=== PATIENT | female | born 1980 | race Hispanic/Latino ===

== ENCOUNTER 2018-02-11 15:17 | Emergency (ER) | payer OTHER, SELFPAY ==
[2018-02-11 15:37] VITALS: BP 110/74; PULSE 89; RESP 16; TEMP 36.8; O2SAT 99; BMI 24.8
[2018-02-11 16:23] LABS: Bacteria Urine Moderate (10-30); RBC Urine 10-30/HPF (0-5/HPF); WBC Urine 10-30/HPF (0-5/HPF)
[2018-02-11 16:24] LABS: Culture Indicated Urine Specimen Cultured
[2018-02-11 18:30] VITALS: BP 105/67; PULSE 81; RESP 16; O2SAT 99
[2018-02-11] MEDS: HYDROCODONE/ACET 5/325 TABLET 1 TAB PO (19:00)
--- NOTE | 2018-02-11 19:10 | ED.PREGNANCY ---
HPI - <CADY Evans - Last Filed: 02/11/18 22:19> General Chief complaint: Urogenital-Female Stated complaint: thinks a UTI Time Seen by Provider: 02/11/18 18:45 Source: patient Mode of arrival: ambulatory Limitations: no limitations History of Present Illness HPI Narrative: 38-year-old healthy female that is nonsmoker here for complaint of having dysuria and increased urinary frequency over the past 10 days. She was seen for this at her primary care office and she states that she did not receive Any antibiotics. She states symptoms have gotten worse over the past few days and then today she started having pain into her right flank area. She denies any trauma to the area. She noted fevers chills no nausea or vomiting. Positive p.o. intake. She denies any hematuria. Related Data Previous Rx's Medication Instructions Recorded levofloxacin [Levaquin] 750 mg PO DAILY #6 tab 02/11/18 Allergies Allergy/AdvReac Type Severity Reaction Status Date / Time No Known Drug Allergies Allergy Verified 02/11/18 15:43 Review of Systems <CADY Evans - Last Filed: 02/11/18 22:19> Constitutional Denies chills, Denies fever(s), Denies lethargy and Denies weakness Eyes Denies change in vision, Denies eye discharge, Denies irritation and Denies loss of vision ENT Ears, Nose, Mouth, and Throat: Denies change in voice, Denies neck pain and Denies sore throat Cardiovascular Denies chest pain, Denies irregular heart rhythm, Denies lightheadedness, Denies palpitations, Denies dyspnea, Denies dyspnea on exertion and Denies orthopnea Respiratory Denies cough, Denies dyspnea, Denies dyspnea on exertion and Denies wheezing Gastrointestinal Gastrointestinal: Denies abdominal pain, Denies change in bowel habits, Denies diarrhea, Denies nausea and Denies vomiting Genitourinary Denies hematuria, Reports dysuria, Reports flank pain, Denies urinary incontinence and Reports urinary urgency Musculoskeletal Denies neck pain Integumentary/Breasts Denies pruritus, Denies erythema, Denies rash and Denies wounds Neurologic Denies confusion, Denies loss of vision and Denies weakness Psychiatric Denies anxiety, Denies confusion, Denies depression, Denies homicidal ideation and Denies suicidal ideation Endocrine Denies palpitations Hematologic/Lymphatic Denies easy bruising Allergic/Immunologic Denies wheezing PMFSH - <CADY Evans - Last Filed: 02/11/18 22:19> Past Medical History Medical history: Reports no medical history Exam <CADY Evans - Last Filed: 02/11/18 22:19> Initial Vital Signs Initial Vital Signs: Vital Signs Temperature 98.2 F 02/11/18 15:37 Pulse Rate 89 02/11/18 15:37 Respiratory Rate 16 02/11/18 15:37 Blood Pressure 110/74 02/11/18 15:37 Pulse Oximetry 99 02/11/18 15:37 Const General: cooperative and well developed Nutritional Appearance: well nourished Orientation: alert, awake, oriented x3 and not confused HENCO Mouth: oral mucosae normal and moist mucous membranes Eyes Conjunctivae: conjunctivae normal Sclera: sclerae normal Pupils: PERRL EOM: EOM intact bilaterally Resp Effort & Inspection: normal respiratory effort, able to speak in complete sentences, no respiratory distress and no use of accessory muscles Auscultation: clear to auscultation bilaterally, no rales, no rhonchi and no wheezes Cardio Rate: regular rate Rhythm: regular rhythm Heart Sounds: no click, no gallops, no murmurs and no rubs Pulses: normal peripheral pulses GI Inspection: non-distended Palpation: soft, no hepatosplenomegaly, No guarding, No pulsatile mass and No tender Auscultation: normal bowel sounds General: CVA tenderness Skin General: no rashes or lesions noted, No jaundice and No petechiae Neuro General: alert, oriented x3, gait normal and no focal motor deficits Speech: speech normal <Enoch Garcia DO - Last Filed: 02/11/18 23:19> Initial Vital Signs Initial Vital Signs: Vital Signs Temperature 98.2 F 02/11/18 15:37 Pulse Rate 89 02/11/18 15:37 Respiratory Rate 16 02/11/18 15:37 Blood Pressure 110/74 02/11/18 15:37 Pulse Oximetry 99 02/11/18 15:37 Course <CADY Evans - Last Filed: 02/11/18 22:19> Orders Ordered: Discontinued Medications Hydrocodone Bitart/Acetaminophen ([place] 5/325) 1 tab PO NOW ONE Stop: 02/11/18 19:13 Last Admin: 02/11/18 19:00 Dose: 1 tab Levofloxacin (Levaquin) 750 mg PO NOW ONE Stop: 02/11/18 19:47 Last Admin: 02/11/18 19:52 Dose: 750 mg Vital Signs - 8 hr 02/11/18 15:37 02/11/18 18:30 02/11/18 19:30 Temperature 98.2 F Pulse Rate 89 81 75 Respiratory Rate 16 16 14 Blood Pressure 110/74 Blood Pressure [Right Arm] 105/67 104/63 Pulse Oximetry 99 99 100 <Enoch Garcia DO - Last Filed: 02/11/18 23:19> Orders Ordered: Discontinued Medications Hydrocodone Bitart/Acetaminophen ([place] 5/325) 1 tab PO NOW ONE Stop: 02/11/18 19:13 Last Admin: 02/11/18 19:00 Dose: 1 tab Levofloxacin (Levaquin) 750 mg PO NOW ONE Stop: 02/11/18 19:47 Last Admin: 02/11/18 19:52 Dose: 750 mg Vital Signs - 8 hr 02/11/18 15:37 02/11/18 18:30 02/11/18 19:30 Temperature 98.2 F Pulse Rate 89 81 75 Respiratory Rate 16 16 14 Blood Pressure 110/74 Blood Pressure [Right Arm] 105/67 104/63 Pulse Oximetry 99 99 100 MDM - OB/Uterine Contractions <CADY Evans - Last Filed: 02/11/18 22:19> Lab Data Lab Results 02/11/18 Range/Units Unknown Urine RBC 10-30/hpf H (0-5/HPF) Urine WBC 10-30/hpf H (0-5/HPF) Urine Bacteria Moderate (10-30) H (None) Ur Culture Indicated? Specimen cultured Micro UA Comment Not Reportable Point of Care Testing Test Results Negative Urine Dip Bedside Urine Glucose Negative Bedside Urine Bilirubin - Negative Bedside Urine Ketone - Negative Urine Specific [place] 1.025 Bedside Urine pH 5.5 Bedside Urine Protein + 30 Bedside Urine Urobilinogen - Negative Bedside Urine Nitrite - Negative Bedside Urine Leukocytes +++ 500 Esterase MDM Narrative Medical decision making narrative: Urinalysis indicates urinary tract infection. With right flank pain will treat for starting pyelo nephritis with Levaquin. [id number] Tylenol as needed for any discomfort. urine culture is pending.Plenty of fluids. Follow up with primary care provider the next few days for re-evaluation. For any worsening symptoms return to the emergency room. <Enoch Garcia DO - Last Filed: 02/11/18 23:19> Lab Data Lab Results 02/11/18 Range/Units Unknown Urine RBC 10-30/hpf H (0-5/HPF) Urine WBC 10-30/hpf H (0-5/HPF) Urine Bacteria Moderate (10-30) H (None) Ur Culture Indicated? Specimen cultured Micro UA Comment Not Reportable Point of Care Testing Test Results Negative Urine Dip Bedside Urine Glucose Negative Bedside Urine Bilirubin - Negative Bedside Urine Ketone - Negative Urine Specific [place] 1.025 Bedside Urine pH 5.5 Bedside Urine Protein + 30 Bedside Urine Urobilinogen - Negative Bedside Urine Nitrite - Negative Bedside Urine Leukocytes +++ 500 Esterase Discharge Plan Departure Patient Disposition: Home Clinical Impression: Urinary tract infection Discharge Date/Time: 02/11/18 20:16 Interventions: ED Discharge Assessment Last Done: 02/11/18 20:15 Instructions: DI for Urinary Tract Infection (UTI) Activity Restrictions/Additional Instructions: Laboratory results indicate urinary tract infection. UR prescribed an antibiotic use as directed. Plenty of fluids. Use [id number] Tylenol as needed for any discomfort. Follow up with her primary care provider in the next few days for re-evaluation. For any worsening symptoms return to the emergency room. Prescriptions: New levofloxacin [Levaquin] 750 mg tablet 750 mg PO DAILY Qty: 6 RF: 0 Referrals: [facility] [Provider Group] <Enoch Garcia DO - Last Filed: 02/11/18 23:19> Cosign ED Attending Cossameeraature Attestation: I was immediately available in the department for consultation. Documentation has been reviewed. I agree with assessment and plan.
[2018-02-11 19:30] VITALS: BP 104/63; PULSE 75; RESP 14; O2SAT 100
[2018-02-11] MEDS: levoFLOXacin 250 MG TABLET 750 MG PO (19:52)
== END 2018-02-11 20:16 | disposition home or self-care (01) ==
PROVIDERS: Emergency Medicine; Emergency Provider Nurse Practitioner Family
DX: N39.0 Urinary tract infection, site not specified (principal)
CPT/HCPCS: 81003; 81015; 81025; 87077; 87086; 87186; 99282; 99283

== ENCOUNTER 2019-12-13 16:57 | Emergency (ER) | payer OTHER, SELFPAY ==
[2019-12-13 17:07] VITALS: BP 119/79; PULSE 78; RESP 14; TEMP 36.9; O2SAT 99; BMI 23.3
[2019-12-13] MEDS: hydrOXYzine pamoate 25 MG CAPSULE 50 MG PO (18:18)
[2019-12-13 18:35] VITALS: BP 119/79; PULSE 61; RESP 15; O2SAT 99
--- NOTE | 2019-12-13 18:49 | ED_ITS ---
HPI - Skin/Abscess/Foreign Bdy <AUSTIN Zapien-BC - Last Filed: 12/13/19 18:53> General Chief complaint: Skin/Abscess/Foreign Body Stated complaint: RASH ON LOWER BACK Time Seen by Provider: 12/13/19 17:26 Source: patient and family Mode of arrival: Ambulatory Limitations: no limitations History of Present Illness HPI narrative: The patient is a 39-year-old female former smoker who denies pertinent medical history presents with a chief complaint of a rash over her lower back. It started last month, no new substances such as lotions, creams etcetera. She has tried ketoconazole, steroid creams, in Eucerin. She denies any fevers nausea vomiting or diarrhea. She states she has tried to get into her primary care provider a few times. She states is so itchy that she cannot sleep at night. Denies any rash anywhere else. Of note the patient is [place]-speaking. She was offered a nuclear medical technologist several times, but opted to use her for interpretation instead. She declined a nuclear medical technologist several times. Related Data Previous Rx's Medication Instructions Recorded levofloxacin [Levaquin] 750 mg PO DAILY #6 tab 02/11/18 hydroxyzine HCl 50 mg PO TID PRN #14 tab 12/13/19 Allergies Allergy/AdvReac Type Severity Reaction Status Date / Time No Known Drug Allergies Allergy Verified 12/13/19 17:07 Review of Systems <AUSTIN Zapien- - Last Filed: 12/13/19 18:53> Review of Systems Narrative: GENERAL: Denies chills, fatigue, malaise, fever, sweats. HEENT: Denies sinus pain, ear pain, sore throat, difficulty swallowing, dizziness. RESPIRATORY: Denies dyspnea, cough, wheezing, hemoptysis, sputum. CARDIOVASCULAR: Denies chest pain, palpitations, orthopnea, edema, GASTROINTESTINAL: Denies nausea, vomiting, abdominal pain, diarrhea, constipation, melena. : Denies dysuria, frequency, incontinence, hematuria, urinary retention. MUSCULOSKELETAL: denies weakness, joint pain, or bony pain SKIN: See HPI NEUROLOGIC: Denies weakness, headache, numbness, change in speech, confusion, seizures, incoordination. PSYCHIATRIC: No concerning psychosocial issues. 12 point review of systems is negative except for those stated above Patient History <Carolyn ADRIENNE Cheng - Last Filed: 12/13/19 18:53> Social History Smoking Status: Former smoker Smoking Status: Former smoker alcohol intake frequency: 0-2 drinks per day Substance Use Type: does not use Exam <Carolyn ChengADRIENNE - Last Filed: 12/13/19 18:53> Narrative Exam Narrative: GENERAL: This is a well-nourished, well-developed patient, no acute distress. HEAD: Atraumatic. Normocephalic. No temporal or scalp tenderness. EYES: Pupils equal round and reactive. Extraocular motions intact. No scleral icterus. No injection or drainage. ENT: Nose without bleeding, purulent drainage or septal hematoma. Throat without erythema, tonsillar hypertrophy or exudate. Uvula midline. Airway patent. No oropharyngeal swelling noted. NECK: Trachea midline. No JVD or lymphadenopathy. Supple, nontender, no meningeal signs. CARDIOVASCULAR: Regular rate and rhythm RESPIRATORY: Clear to auscultation. Breath sounds equal bilaterally. No wheezes, rales, or rhonchi. GASTROINTESTINAL: Abdomen soft, non-tender, nondistended. No hepato- splenomegaly, or palpable masses. No guarding. EXTREMITIES: No clubbing, cyanosis, or edema. No joint tenderness, effusion, or edema noted. BACK: Nontender without deformity or crepitance. No flank tenderness. NEURO: AOx3. SKIN: Macular papular rash over lower back, multiple scratch sites noted. Initial Vital Signs Initial Vital Signs: Vital Signs Temperature 98.5 F 12/13/19 17:07 Pulse Rate 78 12/13/19 17:07 Respiratory Rate 14 12/13/19 17:07 Blood Pressure 119/79 12/13/19 17:07 Pulse Oximetry 99 12/13/19 17:07 <Mae Gutiérrez DO - Last Filed: 12/18/19 07:27> Initial Vital Signs Initial Vital Signs: Vital Signs Temperature 98.5 F 12/13/19 17:07 Pulse Rate 78 12/13/19 17:07 Respiratory Rate 14 12/13/19 17:07 Blood Pressure 119/79 12/13/19 17:07 Pulse Oximetry 99 12/13/19 17:07 Course <Carolyn ADRIENNE Cheng - Last Filed: 12/13/19 18:53> Orders Ordered: Discontinued Medications Hydroxyzine Pamoate (Vistaril) 50 mg PO NOW ONE Stop: 12/13/19 18:11 Last Admin: 12/13/19 18:18 Dose: 50 mg Documented by: APRYL Vital Signs Vital signs: Vital Signs - 8 hr 12/13/19 17:07 12/13/19 18:35 Temperature 98.5 F Pulse Rate 78 61 Respiratory Rate 14 15 Blood Pressure 119/79 119/79 Pulse Oximetry 99 99 <Mae Gutiérrez DO - Last Filed: 12/18/19 07:27> Orders Ordered: Discontinued Medications Hydroxyzine Pamoate (Vistaril) 50 mg PO NOW ONE Stop: 12/13/19 18:11 Last Admin: 12/13/19 18:18 Dose: 50 mg Documented by: APRYL Vital Signs Vital signs: Vital Signs - 8 hr 12/13/19 17:07 12/13/19 18:35 Temperature 98.5 F Pulse Rate 78 61 Respiratory Rate 14 15 Blood Pressure 119/79 119/79 Pulse Oximetry 99 99 MDM - Skin/Abscess/Foreign Bdy <ADRIENNE Zapien - Last Filed: 12/13/19 18:53> MDM Narrative Medical decision making narrative: The patient is a 39-year-old female who presents with a chief complaint of a rash in her lower back that is very itchy and has been present for about a month. She states that is getting worse incredibly itchy. Exam correlates with a contact dermatitis. I discussed at length using no additive supervisor blueprinting and photocopy, avoiding dryer sheets, avoiding scented products etcetera. Given the severity of her itching and discomfort, she was given hydroxyzine and a prescription thereof. I also placed her on a steroid burst, but discussed taking that tomorrow morning so that she can sleep tonight. Encouraged follow-up with primary care provider in the next few days as well as coming back to the emergency department for any acute concerns. Patient has no signs of systemic illness, is afebrile nontoxic appearing in the emergency department. No questions or concerns upon discharge and states understanding of return precautions as well as follow-up care. Discharge Plan Departure Patient Disposition: Home Clinical Impression: Contact dermatitis Qualifiers: Contact dermatitis type: unspecified Contact dermatitis trigger: unspecified trigger Qualified Code(s): L25.9 - Unspecified contact dermatitis, unspecified cause Discharge Date/Time: 12/13/19 18:43 Instructions: DI for Contact Dermatitis, DI for Rash Activity Restrictions/Additional Instructions: Thank you for trusting us with your care today. I sent 2 prescriptions to [facility] in [place]. As discussed, I suggest starting her steroids tomorrow as they might prevent you from sleeping tonight. I also sent in a prescription of hydroxyzine for itching, please do not take this with Benadryl. Be aware it can make you sleepy, so do not take and drive or combine it with anything sedating like alcohol. I suggest using low additives supervisor blueprinting and photocopy around her house, lotions without scents, etc Please follow-up with primary care provider in the next few days. Please come back to the emergency department for any acute concerns. Prescriptions: New hydroxyzine HCl 50 mg tablet 50 mg PO TID PRN (Reason: itching) Qty: 14 RF: 0 No Action levofloxacin [Levaquin] 750 mg tablet 750 mg PO DAILY Qty: 6 RF: 0 Referrals: Jamal Snow MD [Non-Staff] - <Mae Gutiérrez DO - Last Filed: 12/18/19 07:27> Cosign ED Attending Cosignature Attestation: I was immediately available in the department for consultation. Documentation has been reviewed. I agree with assessment and plan.
== END 2019-12-13 18:43 | disposition home or self-care (01) ==
PROVIDERS: Emergency Provider Nurse Practitioner Family
DX: L25.9 Unspecified contact dermatitis, unspecified cause (principal)
CPT/HCPCS: 99283

== ENCOUNTER 2023-04-26 14:27 | Emergency (ER) | payer OTHER, SELFPAY ==
[2023-04-26 14:48] VITALS: BP 121/68; PULSE 65; RESP 18; TEMP 36.6; O2SAT 98; BMI 24.2
[2023-04-26 16:45] VITALS: BP 113/70; PULSE 71; RESP 16; O2SAT 99
--- NOTE | 2023-05-02 12:14 | ED_ITS ---
HPI - Back Pain/Injury <Judith Casillas PA-C - Last Filed: 05/02/23 12:29> General Chief Complaint: Back Pain/Injury Stated Complaint: vaginal issues/back pain Time Seen by Provider: 04/26/23 16:04 History of Present Illness HPI Narrative: 43 F presents to the ED with lower back pain, vaginal itching. Patient recently moved homes, has been lifting heavy weights and notes lower back pain over the last week. Has taken OTC pain meds a couple times but not consistently. No dysuria, saddle paresthesias, urinary hesitancy, urinary incontinence, bowel incontinence. Patients complains of labial itching, denies vaginal discharge. Patient is s/p hyterectomy from 2 years ago. Related Data Previous Rx's Medication Instructions Recorded levofloxacin 750 mg tablet 750 mg PO DAILY #6 tabs 02/11/18 (Levaquin) hydroxyzine HCl 50 mg tablet 50 mg PO TID PRN itching #14 tabs 12/13/19 Allergies Allergy/AdvReac Type Severity Reaction Status Date / Time No Known Drug Allergies Allergy Verified 12/13/19 17:07 Review of Systems <Judith Casillas PA-C - Last Filed: 05/02/23 12:29> Constitutional Constitutional: Denies chills, Denies fatigue, Denies fever(s), Denies frequent falls, Denies lethargy and Denies weakness Eyes Eyes: Denies change in vision, Denies eye discharge, Denies irritation and Denies loss of vision ENT Ears, Nose, Mouth, and Throat: Denies change in voice, Denies dizziness, Denies neck pain, Denies sore throat and Denies throat swelling Cardiovascular Cardiovascular: Denies chest pain, Denies irregular heart rhythm, Denies lightheadedness, Denies palpitations, Denies dyspnea, Denies dyspnea on exertion and Denies orthopnea Respiratory Respiratory: Denies cough, Denies dyspnea, Denies dyspnea on exertion and Denies wheezing Gastrointestinal Gastrointestinal: Denies abdominal pain, Denies change in bowel habits, Denies diarrhea, Denies nausea and Denies vomiting Genitourinary Genitourinary: Reports vaginal pruritus Musculoskeletal Musculoskeletal: Reports back pain, Denies neck pain and Denies numbness Integumentary/Breasts Skin/Breast: Denies pruritus, Denies erythema, Denies rash and Denies wounds Neurologic Neurologic: Denies behavioral changes, Denies confusion, Denies dizziness, Den ies frequent falls, Denies loss of vision, Denies numbness and Denies weakness Psychiatric Psychiatric: Denies anxiety, Denies behavioral changes, Denies confusion, Denies depression, Denies homicidal ideation and Denies suicidal ideation Endocrine Endocrine: Denies fatigue, Denies flushing and Denies palpitations Hematologic/Lymphatic Hematologic/Lymphatic: Denies easy bruising Allergic/Immunologic Allergic/Immunologic: Denies urticaria, Denies throat swelling and Denies wheezing Patient History <Judith Casillas PA-C - Last Filed: 05/02/23 12:29> Social History Smoking Status: Former smoker Smoking Status: Former smoker alcohol intake frequency: 0-2 drinks per day Substance Use Type: does not use Exam <Judith Casillas PA-C - Last Filed: 05/02/23 12:29> Initial Vital Signs Initial Vital Signs: Vital Signs Temperature 98 F 04/26/23 14:48 Pulse Rate 65 04/26/23 14:48 Respiratory Rate 18 04/26/23 14:48 Blood Pressure 121/68 04/26/23 14:48 Pulse Oximetry 98 04/26/23 14:48 Oxygen Delivery Method Room Air 04/26/23 14:48 Const General: cooperative Resp Effort & Inspection: normal respiratory effort, able to speak in complete sentences, no respiratory distress and no use of accessory muscles Auscultation: clear to auscultation bilaterally, no rales, no rhonchi and no wheezes Cardio Rate: regular rate Rhythm: regular rhythm Heart Sounds: no click, no gallops, no murmurs and no rubs Pulses: normal peripheral pulses External Female Exam: normal external appearance, no lesions and no lacerations Back/Spine/Pelvis Back: No CVA tenderness Cervical Spine: cervical ROM normal, No cervical muscular tenderness, No pain with cervical ROM and No cervical spinal tenderness Thoracic/Lumbar Spine: thoracic and lumbar spine normal to inspection Neuro General: patient alert, patient awake and patient oriented x3 <Deonte Rowell MD - Last Filed: 05/03/23 12:42> Initial Vital Signs Initial Vital Signs: Vital Signs Temperature 98 F 04/26/23 14:48 Pulse Rate 65 04/26/23 14:48 Respiratory Rate 18 04/26/23 14:48 Blood Pressure 121/68 04/26/23 14:48 Pulse Oximetry 98 04/26/23 14:48 Oxygen Delivery Method Room Air 04/26/23 14:48 MDM - Back Pain/Injury <Judith Casillas PA-C - Last Filed: 05/02/23 12:29> MDM Narrative Medical decision making narrative: 43 F presents to the ED with lower back pain, vaginal itching. Concern for musculoskeltal sprain/strin of the lower back. No imaging indicated at this time since no midline TTP. Wet prep neg for BV or yeast. Likely atrophic vaginits. Re commend OTC vaginal lubricants. Recommend f/u with PCP. ED return precautions discussed with patient. Patient verbalized understanding. Medical records reviewed: yes Discharge Plan Departure Patient Disposition: Home Clinical Impression: Vaginal itching Back pain Qualifiers: Back pain location: low back pain Chronicity: acute Back pain laterality: unspecified Sciatica presence: without sciatica Qualified Code(s): M54.50 - Low back pain, unspecified Instructions: DI for Low Back Pain Activity Restrictions/Additional Instructions: You were evaluated in the ED today for lower back pain and some vaginal itching. Your lower back pain is likely due to a musculoskeletal sprain/strain from overuse. You may take 600 mg of ibuprofen 3 times a day with food. You may also take 1000 mg of Tylenol every 8 hours. You may take these medications for 5-7 days. The vaginal swab was negative and you do not have bacterial vaginosis or a yeast infection. Your vaginal itching is likely due to dryness, for which you can use some [id number] lubricants. You may also try topical hydrocortisone creams. Please follow-up with your PCP as soon as possible. Return to the ED if you have worsening symptoms, urinary difficulties, numbness, tingling, weakness. Prescriptions: No Action levofloxacin [Levaquin] 750 mg tablet 750 mg PO DAILY Qty: 6 0RF hydroxyzine HCl 50 mg tablet 50 mg PO TID PRN (Reason: itching) Qty: 14 0RF Stand Alone Forms: Patient Portal/API ED Sign-out <Deonte Rowell MD - Last Filed: 05/03/23 12:42> Cosign ED Attending Cosignature Attestation: I was immediately available in the department for consultation. Documentation has been reviewed. I agree with assessment and plan.
== END 2023-04-26 19:12 | disposition home or self-care (01) ==
PROVIDERS: Emergency Provider Student in an Organized Health Care Education/Training Program
DX: M54.50 Low back pain, unspecified (principal); N89.8 Other specified noninflammatory disorders of vagina
CPT/HCPCS: 87210; 99282